=== PATIENT | male | born 1985 | race Caucasian/White ===

== ENCOUNTER 2018-02-12 06:52 | Emergency (ER) | payer SELFPAY ==
[2018-02-12 06:57] VITALS: BP 143/80; TEMP 98.7; BMI 30.9
[2018-02-12] MEDS ORDERED: ACETAMINOPHEN 325 MG TABLET (FP) PO ONE (07:13)
[2018-02-12] MEDS ORDERED: ACETAMINOPHEN 325 MG TABLET (FP) ONE (07:39)
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
[2018-02-12 08:26] VITALS: PULSE 107
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
== END 2018-02-12 08:52 ==
LOC: JER 06:52
PROC: 2W3DX1Z Immobilization of Left Lower Arm using Splint (ICD-10-PCS; principal; 2018-02-12)
DX: S62.397A Other fracture of fifth metacarpal bone, left hand, initial encounter for closed fracture (principal); V47.5XXA Car driver injured in collision with fixed or stationary object in traffic accident, initial encounter; Y92.488 Other paved roadways as the place of occurrence of the external cause; Y93.89 Activity, other specified; Y99.8 Other external cause status
CPT/HCPCS: 73130-TC-LR-FY; 99282-25